=== PATIENT | male | born 2000 | race African-American/Black ===

== ENCOUNTER 2023-02-22 08:56 | Outpatient (CLI) | payer BC, SELFPAY ==
--- NOTE | ~2023-02-22 | US_ITS ---
Renal-Bladder ultrasound Clinical History: Left flank pain Technique: Real-time sonographic imaging of the kidneys and urinary bladder was performed. Findings: The right kidney measures 10.6 cm in length and the left kidney measures 11.8 cm. There is no hydronephrosis or renal calculus identified. Renal cortical echogenicity is within normal limits. Left renal cyst noted. The urinary bladder is moderately distended at the time of this exam. No intraluminal echoes are iden tified. No abnormal wall thickening is seen. Impression: No significant abnormality identified. Reviewed, dictated and finalized at location . Impression: No significant abnormality identified.
== END 2023-02-22 08:57 | disposition home or self-care (01) ==
PROVIDERS: PCP Registered Nurse; Visit Provider Registered Nurse
DX: R10.9 Unspecified abdominal pain (principal)
CPT/HCPCS: 76775

== ENCOUNTER 2023-03-30 13:38 | Outpatient (CLI) | payer BC, SELFPAY ==
--- NOTE | ~2023-03-30 | CT_ITS ---
Non-contrast CT scan of the Abdomen and Pelvis Clinical indication: Renal cyst Technique: 2.5 mm axial scans were obtained through the abdomen and pelvis without intravenous or or al contrast. Dose reduction technique was used on this scan by utilizing automated exposure control a nd iterative reconstruction technique. The dose-length product (DLP) was 234.59 mGy-cm. Findings: Images through the lung bases reveal no abnormalities. 2.7 cm left upper pole renal cyst present. Bilateral kidneys otherwise are unremarkable. No stones or hydronephrosis seen. The liver, spleen, pancreas, gallbladder, and adrenals appear normal. There is no aortic aneurysm. There is no evidence of bowel obstruction. Images through the pelvis were performed. There is no evidence of ascites or lymphadenopathy. Urinary bladder unremarkable. No pelvic mass seen. Impression: 2.7 cm left upper pole renal cyst. Reviewed, dictated and finalized at [facility]. Impression: 2.7 cm left upper pole renal cyst.
== END 2023-03-30 13:39 | disposition home or self-care (01) ==
PROVIDERS: PCP Registered Nurse; Visit Provider Registered Nurse
DX: N28.1 Cyst of kidney, acquired (principal)
CPT/HCPCS: 74176

== ENCOUNTER 2023-07-20 21:47 | Emergency (ER) | payer BC, SELFPAY ==
--- NOTE | ~2023-07-20 | XR_ITS ---
Clinical Indication: Chest pain PA and lateral views of the chest: Comparison: None Findings: The lungs are clear, without evidence of focal consolidation or pleural effusion. Cardiome diastinal silhouette is within normal limits. Bones and soft tissues are unremarkable. Impression: Normal chest. Reviewed, dictated and finalized at location . Impression: Normal chest.
[2023-07-20 22:33] VITALS: BP 127/75; PULSE 90; RESP 17; TEMP 37.5; O2SAT 100
[2023-07-20 23:21] LABS: Influenza A QL RT-PCR Negative (Negative); Influenza B QL RT-PCR Negative (Negative); SARS-CoV-2 RNA PCR Negative (Negative)
--- NOTE | 2023-07-21 01:26 | ECG_ITS ---
Measurements Intervals [place] Rate: 78 P: 86 MO: 169 QRS: 87 QRSD: 99 T: 55 QT: 346 QTc: 395 Interpretive Statements SINUS RHYTHM WITH SINUS ARRHYTHMIA INCOMPLETE RIGHT BUNDLE BRANCH BLOCK BASELINE ARTIFACT- I, II, AVR BORDERLINE ECG NO PREVIOUS ECG AVAILABLE FOR COMPARISON Electronically Signed On 07-21-2023 6:40:13 CDT by Don Engel D.O.
[2023-07-21 01:39] LABS: Strep Group A RT-PCR NOT DETECTED (Negative)
--- NOTE | 2023-07-21 01:41 | ED.URI ---
HPI - URI/Sore Throat General Chief Complaint: Upper Respiratory Infection Stated Complaint: covid symptoms Time Seen by Provider: 07/21/23 01:08 History of Present Illness HPI Narrative: 23-year-old male reports for evaluation for URI symptoms and chest pain. Patient states yesterday he began having a sore throat which she describes as feeling like his throat was closing up. He states that sensation has since resolved but he has had body aches, rhinorrhea, hot and cold flashes and sneezing. He is also reporting chest pain that occurred today 2 times after he ate a sandwich around 9 PM. States the chest pain was sharp in his anterior chest, lasting seconds at a time. He denies radiating symptoms, nausea or vomiting, diaphoresis, shortness of breath or palpitations, bilateral lower extremity edema, history of VTE. He denies fever, cough. He does report recent sick contacts at school. Related Data Allergies Allergy/AdvReac Type Severity Reaction Status Date / Time No Known Allergies Allergy Verified 07/21/23 02:39 Review of Systems Review of Systems: CONSTITUTIONAL: Denies fever, chills EYES: Denies visual changes, redness, or discharge. ENT: See HPI CARDIOVASCULAR: See HPI RESPIRATORY: Denies cough or dyspnea. GASTROINTESTINAL: Denies abdominal pain, nausea, vomiting, or diarrhea. GENITOURINARY: Denies dysuria or hematuria. SKIN: Denies rash or itching. MUSCULOSKELETAL: Denies back pain, joint pain, or myalgia. NEUROLOGIC: Denies headache, numbness, dizziness, or weakness. PSYCHIATRIC: Denies anxiety or depression. Exam Narrative: GENERAL: Well-appearing, in no acute distress. Patient resting comfortably in exam bed. He is pleasant and conversational. HEAD: Normocephalic EYES: PERRLA ENT: Nares clear. Mucous membranes moist. Oropharynx without tonsillar hypertrophy exudate or other lesions. No erythema to posterior pharynx. Uvula is midline. Bilateral TMs are pearson nonbulging. Normal canals. NECK: Supple. No nuchal rigidity. CHEST: No respiratory distress. Clear to auscultation, no adventitious breath sounds. HEART: Regular rate and rhythm. No murmur heard. Normal peripheral pulses. ABDOMEN: Soft, nontender, normal active bowel sounds. EXTREMITIES: Normal range of motion. No edema. Negative Homans bilaterally. SKIN: Warm, dry, no rash. NEURO: No focal deficits. Alert and oriented x3. PSYCH: Normal mood and affect. Course Vital Signs Vital signs: Vital Signs Temperature 99.5 F 07/20/23 22:33 Pulse Rate 90 07/20/23 22:33 Respiratory Rate 17 07/20/23 22:33 Blood Pressure 127/75 07/20/23 22:33 Pulse Oximetry 100 07/20/23 22:33 Oxygen Delivery Room Air 07/20/23 22:33 Temperature 99.5 F 07/20/23 22:33 Pulse Rate 78 07/21/23 03:01 Respiratory Rate 16 07/21/23 03:01 Blood Pressure 128/76 07/21/23 03:01 Pulse Oximetry 98 07/21/23 03:01 Oxygen Delivery Room Air 07/20/23 22:33 MDM - URI/Sore Throat MDM Narrative Medical decision making narrative: 23-year-old male reports for evaluation for sneezing, rhinorrhea, sore throat, body aches, and chest pain. See HPI for further history. Vitals are stable and patient is well-appearing on exam. Labs are significant for no leukocytosis. Chemistries are largely unremarkable. Bilirubin is elevated to 2, no other elevations in LFTs, no anemia concerning for hemolysis, no abdominal pain. COVID, flu and strep are negative. Chest x-ray is unremarkable. EKG shows sinus rhythm, no ST elevations or depressions. Troponin WNL. Lipase normal. Labs and imaging discussed with patient and mother present at bedside. Symptoms consistent with viral URI. EKG and normal troponin not consistent with myocarditis or pericarditis. Heart score is 0. Chest pain seems to be possibly secondary to GERD. Will start patient on Pepcid and have follow-up with his PCP, encouraged repeat labs for further evaluation of isolated elevated bilirubin.
[2023-07-21 01:51] LABS: Basophils Percent Auto 0.4 % (0.2-1.2); Eosinophils Absolute Auto 0.1 K/mm3 (0-0.3); Eosinophils Percent Auto 2.6 % (0-4.4); Hematocrit 44.4 % (42.0-52.0); Hemoglobin 14.5 g/dL (14.0-18.0); Lymphocytes Absolute Auto 1.35 K/mm3 (0.9-3.2); Lymphocytes Percent Auto 25.3 % (18.3-44.2); Mean Corpuscular HGB Conc 32.7 g/dl (32-36); Mean Corpuscular Hemoglobin 32.2 pg (26-34); Mean Corpuscular Volume 98.7 fl (80-100); Monocytes Absolute Auto 0.6 K/mm3 (0.1-0.6); Monocytes Percent Auto 10.9 % (2.6-8.5); Neutrophils Absolute Auto 3.3 K/mm3 (1.3-6.7); Neutrophils Percent Auto 60.8 % (45.5-73.1); Platelet Count Result 225 k/mm3 (150-375); White Blood Count 5.3 K/mm3 (4.5-10.0)
[2023-07-21 02:10] LABS: Alanine Aminotransferase 15 U/L (6-50); Albumin Level 4.3 g/dL (3.5-5.1); Alkaline Phosphatase 84 U/L (38-126); Anion Gap 7 mmol/L (8-16); Aspartate Amino Transferase 23 U/L (17-59); Blood Urea Nitrogen 14 mg/dL (9-20); Carbon Dioxide 25 mmol/L (22-30); Chloride 104 mmol/L (98-107); Estimated CRCL calculation 124 ml/min; Estimated Glomerular Filt Rate > 60; Glucose 98 mg/dL (65-110); Lipase 62 U/L (23-300); Potassium 3.5 mmol/L (3.4-5.0); Sodium 136 mmol/L (137-145)
[2023-07-21 02:22] LABS: Troponin I < 0.012 ng/mL (0.000-0.034)
[2023-07-21 03:01] VITALS: BP 128/76; PULSE 78; RESP 16; O2SAT 98
== END 2023-07-21 03:04 | disposition home or self-care (01) ==
PROVIDERS: Emergency Medicine; Emergency Provider Physician Assistant; PCP Registered Nurse
DX: J00 Acute nasopharyngitis [common cold] (principal); R07.89 Other chest pain; Z20.822 Contact with and (suspected) exposure to COVID-19; I45.10 Unspecified right bundle-branch block
CPT/HCPCS: 36415; 71046; 80053; 83690; 84484; 85025; 87636; 87651; 93005; 99284